=== PATIENT | female | born 1985 | race African-American/Black ===

== ENCOUNTER → 2024-05-31 | Outpatient (CLI) | payer OTHER ==
[2024-05-31 08:23] LABS: FREE T4 (FREE THYROXINE) 1.08 ng/dL (0.76-1.46); THYROID STIMULATING HORMONE 0.36 uIU/mL (0.36-3.74)
== END | disposition home or self-care (01) ==
LOC: LABMN 07:35
PROVIDERS: ATTEND Chiropractor
DX: E04.9 Nontoxic goiter, unspecified (principal)
CPT/HCPCS: 84439; 84443; 84481